=== PATIENT | male | born 1965 | race African-American/Black ===

== ENCOUNTER 2016-12-07 02:45 | Inpatient (IN) | payer MEDICARE, MEDICAID ==
[~2016-12-07] VITALS: Ht 185.4 cm; Wt 108.9 kg
[~2016-12-07 02:45] MED LIST: AMLO10TA80 PO; CINA30 PO; CLON0.1T PO; CLOP75TA33 PO; FURO40TA5 PO; HYDR-523 PO; INSU100I19 SQ; ISOSORBIDE DINITRATE; LOSA25TA12 PO; METO100T5 PO; MULT-1146 PO; NEPVIT PO; NITR0.4T49 SL; REN800 PO
[2016-12-07] MEDS ORDERED: SODIUM CHLORIDE 0.9% 500 ML IV ONE (03:45)
[2016-12-07 04:35] LABS: EOSINOPHILS % 1.8 % (0.0-5.0); HEMATOCRIT. 25.3 % (42.0-52.0); HEMOGLOBIN. 8.3 g/dL (14.0-18.0); LYMPHOCYTES % 11.8 % (20.0-50.0); MEAN CORPUSCULAR HEMOGLOBIN 30.6 pg (28.0-32.0); MEAN CORPUSCULAR VOLUME 93.5 fL (80.0-94.0); MEAN PLATELET VOLUME 9.4 fl (7.4-10.4); MONOCYTES % 7.5 % (2.0-8.0); NEUTROPHILS % 77.9 % (40.0-76.0); PLATELET 276 x1000/uL (130-400); RED CELL DISTRIBUTION WIDTH 15.5 % (11.6-14.6)
[2016-12-07] MEDS ORDERED: ONDANSETRON HCL 4MG/2ML VIAL IV ONE (04:45)
[2016-12-07 04:51] LABS: CARBON DIOXIDE 31 mEq/L (21-32); CHLORIDE 94 mEq/L (98-107); TROPONIN I 0.08 ng/mL (0.00-0.04)
[2016-12-07 08:55] VITALS: BP 127/68
[2016-12-07] MEDS ORDERED: DEXTROSE 50% WATER 50ML SYRINGE IV PRN (11:15)
[2016-12-07] MEDS: CLONIDINE 0.1MG TABLET PO SCH ×2 (11:30→22:00)
[2016-12-07] MEDS ORDERED: NITROGLYCERIN 0.4MG TABLET SL SL SCH (11:30)
[2016-12-07] MEDS: AMLODIPINE 10MG TABLET PO SCH (11:33)
[2016-12-07] MEDS ORDERED: HYDROCODONE/ACETAMINOPHEN 5/325MG TABLET PO PRN (11:36)
[2016-12-07] MEDS: METOPROLOL TARTRATE 100MG TABLET PO SCH (11:37)
[2016-12-07] MEDS: LOSARTAN POTASSIUM 25 MG TABLET PO SCH (11:37)
[2016-12-07 12:00] VITALS: BP 116/42
[2016-12-07 12:13] LABS: BASOPHILS % 1.1 % (0.0-2.0); EOSINOPHILS % 1.7 % (0.0-5.0); HEMATOCRIT. 26.9 % (42.0-52.0); HEMOGLOBIN. 8.7 g/dL (14.0-18.0); LYMPHOCYTES % 16.2 % (20.0-50.0); MONOCYTES % 7.3 % (2.0-8.0); NEUTROPHILS % 73.7 % (40.0-76.0); PLATELET 308 x1000/uL (130-400); RED BLOOD CELL COUNT 2.89 mill/uL (4.7-6.1); RED CELL DISTRIBUTION WIDTH 15.3 % (11.6-14.6)
[2016-12-07] MEDS: BLOOD SUGAR DIAGNOSTIC STRIP TEST SCH ×3 (12:20→21:00)
[2016-12-07 12:29] LABS: CARBON DIOXIDE 31 mEq/L (21-32); CHLORIDE 96 mEq/L (98-107)
[2016-12-07] MEDS: INSULIN LISPRO 100 UNITS/ML SUBCUT SCH ×3 (12:41→22:19)
[2016-12-07] MEDS ORDERED: MEDICATION NOT ON FORMULARY EA (Sevelamer Hcl (Renagel) 800 MG) PO SCH (13:00)
[2016-12-07] MEDS: FOLIC ACID/VITAMIN B COMP W-C TABLET PO SCH (13:04)
[2016-12-07] MEDS: CLOPIDOGREL 75MG TABLET PO SCH (13:04)
[2016-12-07] MEDS: DOCUSATE SODIUM 100MG CAPSULE PO SCH (13:04)
[2016-12-07] MEDS: FUROSEMIDE 40MG TABLET PO SCH (13:05)
[2016-12-07] MEDS: SEVELAMER CARBONATE 800 MG TABLET PO SCH ×2 (13:05→17:50)
[2016-12-07] MEDS: MULTIVITAMINS,THER W-MINERALS TABLET PO SCH (13:05)
[2016-12-07] MEDS: CINACALCET HCL 30MG TABLET PO SCH (13:05)
[2016-12-07] MEDS: ONDANSETRON HCL 4MG/2ML VIAL IV PRN (14:52)
[2016-12-07 16:00] VITALS: BP 108/45
[2016-12-07 17:44] LABS: BASOPHILS % 1.2 % (0.0-2.0); EOSINOPHILS % 1.7 % (0.0-5.0); HEMATOCRIT. 26.2 % (42.0-52.0); HEMOGLOBIN. 8.5 g/dL (14.0-18.0); LYMPHOCYTES % 15.5 % (20.0-50.0); MEAN CORPUSCULAR HEMOGLOBIN 30.4 pg (28.0-32.0); MEAN CORPUSCULAR VOLUME 93.3 fL (80.0-94.0); MEAN PLATELET VOLUME 9.4 fl (7.4-10.4); MONOCYTES % 7.7 % (2.0-8.0); NEUTROPHILS % 73.9 % (40.0-76.0); PLATELET 286 x1000/uL (130-400); RED BLOOD CELL COUNT 2.81 mill/uL (4.7-6.1); RED CELL DISTRIBUTION WIDTH 15.5 % (11.6-14.6)
[2016-12-07 17:58] LABS: CARBON DIOXIDE 30 mEq/L (21-32); CHLORIDE 96 mEq/L (98-107)
[2016-12-07] MEDS ORDERED: INSULIN DETEMIR 15 UNIT SQ SCH (18:00)
[2016-12-07] MEDS ORDERED: MORPHINE SULFATE 2 MG/ML CPJ (NOT FOR IM USE) IV PRN (19:15)
[2016-12-07 20:00] VITALS: BP 105/55
[2016-12-07] MEDS: INSULIN DETEMIR UD 100 UNITS/ML SYR SUBCUT SCH (22:19)
[2016-12-07] MEDS ORDERED: FINA5TAB11 PO (23:40)
[2016-12-07] MEDS ORDERED: TAMS0.4C31 PO (23:40)
[2016-12-08 00:53] VITALS: BP 100/53
[2016-12-08 04:00] VITALS: BP 106/51
[2016-12-08] MEDS: CLONIDINE 0.1MG TABLET PO SCH ×3 (06:00→22:00)
[2016-12-08] MEDS: BLOOD SUGAR DIAGNOSTIC STRIP TEST SCH ×4 (06:50→21:20)
[2016-12-08 07:03] LABS: BASOPHILS % 1.4 % (0.0-2.0); EOSINOPHILS % 3.1 % (0.0-5.0); HEMATOCRIT. 25.2 % (42.0-52.0); HEMOGLOBIN. 8.3 g/dL (14.0-18.0); LYMPHOCYTES % 17.7 % (20.0-50.0); MEAN CORPUSCULAR HEMOGLOBIN 30.7 pg (28.0-32.0); MEAN CORPUSCULAR VOLUME 93.3 fL (80.0-94.0); MEAN PLATELET VOLUME 9.1 fl (7.4-10.4); MONOCYTES % 9.5 % (2.0-8.0); NEUTROPHILS % 68.3 % (40.0-76.0); PLATELET 305 x1000/uL (130-400); RED CELL DISTRIBUTION WIDTH 15.6 % (11.6-14.6)
[2016-12-08] MEDS: INSULIN LISPRO 100 UNITS/ML SUBCUT SCH ×4 (07:50→21:00)
[2016-12-08 08:00] VITALS: BP 108/57
[2016-12-08] MEDS: DOCUSATE SODIUM 100MG CAPSULE PO SCH (08:49)
[2016-12-08] MEDS: SEVELAMER CARBONATE 800 MG TABLET PO SCH ×3 (08:49→18:02)
[2016-12-08] MEDS: FOLIC ACID/VITAMIN B COMP W-C TABLET PO SCH (08:50)
[2016-12-08] MEDS: FUROSEMIDE 40MG TABLET PO SCH (08:50)
[2016-12-08] MEDS: CINACALCET HCL 30MG TABLET PO SCH (08:50)
[2016-12-08] MEDS: MULTIVITAMINS,THER W-MINERALS TABLET PO SCH (08:50)
[2016-12-08] MEDS: CLOPIDOGREL 75MG TABLET PO SCH (08:50)
[2016-12-08] MEDS: METOPROLOL TARTRATE 100MG TABLET PO SCH (08:52)
[2016-12-08] MEDS: AMLODIPINE 10MG TABLET PO SCH (08:52)
[2016-12-08] MEDS: LOSARTAN POTASSIUM 25 MG TABLET PO SCH (08:52)
[2016-12-08] MEDS ORDERED: MEDICATION NOT ON FORMULARY EA (Multivitamin (Multi Vitamin Daily) 1 TAB) PO SCH (09:00)
[2016-12-08] MEDS: TAMSULOSIN HCL 0.4MG SR CAPSULE PO SCH (10:30)
[2016-12-08] MEDS ORDERED: IPRATROPIUM/ALBUTEROL 0.5-3(2.5)MG/3ML NEB HHN PRN (10:45)
[2016-12-08] MEDS: IPRATROPIUM/ALBUTEROL 0.5-3(2.5)MG/3ML NEB HHN SCH ×3 (11:53→20:25)
[2016-12-08 12:00] VITALS: BP 111/52
[2016-12-08 17:02] VITALS: BP 102/52
[2016-12-08] MEDS: LACTULOSE 20G/30ML UDC PO PRN (18:57)
[2016-12-08 20:48] VITALS: BP 110/48
[2016-12-08] MEDS ORDERED: EPOETIN ALFA 10000UNITS/ML VIAL SUBCUT SCH (21:00)
[2016-12-08] MEDS: METOPROLOL TARTRATE 50MG TABLET PO SCH (21:00)
[2016-12-08] MEDS: INSULIN DETEMIR UD 100 UNITS/ML SYR SUBCUT SCH (22:00)
[2016-12-09] MEDS: IPRATROPIUM/ALBUTEROL 0.5-3(2.5)MG/3ML NEB HHN SCH ×4 (00:20→15:46)
[2016-12-09 00:33] VITALS: BP 103/47
[2016-12-09 04:39] VITALS: BP 113/46
[2016-12-09] MEDS: CLONIDINE 0.1MG TABLET PO SCH (06:00)
[2016-12-09 06:26] LABS: BASOPHILS % 1.2 % (0.0-2.0); EOSINOPHILS % 2.5 % (0.0-5.0); HEMATOCRIT. 26.6 % (42.0-52.0); HEMOGLOBIN. 8.7 g/dL (14.0-18.0); LYMPHOCYTES % 18.4 % (20.0-50.0); MEAN CORPUSCULAR HEMOGLOBIN 30.7 pg (28.0-32.0); MEAN CORPUSCULAR VOLUME 93.9 fL (80.0-94.0); MEAN PLATELET VOLUME 8.6 fl (7.4-10.4); MONOCYTES % 8.8 % (2.0-8.0); NEUTROPHILS % 69.1 % (40.0-76.0); PLATELET 309 x1000/uL (130-400); RED BLOOD CELL COUNT 2.83 mill/uL (4.7-6.1); RED CELL DISTRIBUTION WIDTH 15.7 % (11.6-14.6)
[2016-12-09] MEDS: BLOOD SUGAR DIAGNOSTIC STRIP TEST SCH ×2 (06:53→12:06)
[2016-12-09] MEDS: INSULIN LISPRO 100 UNITS/ML SUBCUT SCH ×2 (07:50→12:50)
[2016-12-09] MEDS: SEVELAMER CARBONATE 800 MG TABLET PO SCH ×2 (07:50→12:50)
[2016-12-09] MEDS: DOCUSATE SODIUM 100MG CAPSULE PO SCH (07:59)
[2016-12-09] MEDS: LACTULOSE 20G/30ML UDC PO PRN (07:59)
[2016-12-09 08:00] VITALS: BP 140/41
[2016-12-09] MEDS: LOSARTAN POTASSIUM 25 MG TABLET PO SCH (08:18)
[2016-12-09] MEDS: FUROSEMIDE 40MG TABLET PO SCH (08:18)
[2016-12-09] MEDS: TAMSULOSIN HCL 0.4MG SR CAPSULE PO SCH (08:18)
[2016-12-09] MEDS: CLOPIDOGREL 75MG TABLET PO SCH (08:19)
[2016-12-09] MEDS: FOLIC ACID/VITAMIN B COMP W-C TABLET PO SCH (08:19)
[2016-12-09] MEDS: METOPROLOL TARTRATE 50MG TABLET PO SCH (08:19)
[2016-12-09] MEDS: CINACALCET HCL 30MG TABLET PO SCH (08:19)
[2016-12-09] MEDS: MULTIVITAMINS,THER W-MINERALS TABLET PO SCH (08:19)
[2016-12-09] MEDS: AMLODIPINE 10MG TABLET PO SCH (08:19)
[2016-12-09] MEDS ORDERED: BISACODYL 5MG TABLET PO PRN (09:15)
[2016-12-09] MEDS ORDERED: MAGNESIUM CITRATE 300ML SOLUTION PO SCH (09:15)
[2016-12-09] MEDS ORDERED: BISACODYL 5MG TABLET PO SCH (09:15)
[2016-12-09] MEDS: ONDANSETRON HCL 4MG/2ML VIAL IV PRN (10:36)
[2016-12-09] MEDS ORDERED: FINASTERIDE 5MG TABLET PO SCH (11:30)
[2016-12-09 12:12] VITALS: BP 118/32
[2016-12-09 15:45] VITALS: BP 102/50
[2016-12-09 16:04] VITALS: BP 102/50
== END 2016-12-09 16:15 | disposition home or self-care (01) | DRG 291 ==
LOC: ER 03:44 → 6WST 03:49 → EDBEDREQ 05:49 → ENRESERV 07:17
PROVIDERS: ADMIT Family Medicine; ATTEND Family Medicine
DX: I13.2 Hypertensive heart and chronic kidney disease with heart failure and with stage 5 chronic kidney disease, or end stage renal disease (principal); E43 Unspecified severe protein-calorie malnutrition; N18.6 End stage renal disease; I50.31 Acute diastolic (congestive) heart failure; N25.81 Secondary hyperparathyroidism of renal origin; E11.22 Type 2 diabetes mellitus with diabetic chronic kidney disease; E11.51 Type 2 diabetes mellitus with diabetic peripheral angiopathy without gangrene; D63.8 Anemia in other chronic diseases classified elsewhere; E11.319 Type 2 diabetes mellitus with unspecified diabetic retinopathy without macular edema; Z68.31 Body mass index [BMI] 31.0-31.9, adult; I25.2 Old myocardial infarction; Z79.02 Long term (current) use of antithrombotics/antiplatelets; Z86.73 Personal history of transient ischemic attack (TIA), and cerebral infarction without residual deficits; Z89.429 Acquired absence of other toe(s), unspecified side; Z99.2 Dependence on renal dialysis; Z89.511 Acquired absence of right leg below knee; Z79.899 Other long term (current) drug therapy; Z79.4 Long term (current) use of insulin
CPT/HCPCS: 36415; 71010; 80048; 80053; 82962; 83605; 84484; 85025; 87040; 93005; 94640; 94664; 96361; 96374; 97162; 99285; J0885; J1815; J2270; J2405; J7030; J7040; J7620

== ENCOUNTER 2016-12-10 11:49 | Inpatient (IN) | payer MEDICARE, MEDICAID ==
[~2016-12-10] VITALS: Ht 175.3 cm; Wt 119.7 kg
[~2016-12-10 11:49] MED LIST changes: +FINA5TAB11 PO; +TAMS0.4C31 PO
[2016-12-10 13:26] LABS: BASOPHILS % 1.8 % (0.0-2.0); EOSINOPHILS % 1.6 % (0.0-5.0); HEMOGLOBIN. 8.6 g/dL (14.0-18.0); LYMPHOCYTES % 13.1 % (20.0-50.0); MEAN CORPUSCULAR HEMOGLOBIN 30.8 pg (28.0-32.0); MEAN CORPUSCULAR VOLUME 93.2 fL (80.0-94.0); MEAN PLATELET VOLUME 8.6 fl (7.4-10.4); MONOCYTES % 7.5 % (2.0-8.0); PLATELET 325 x1000/uL (130-400); RED BLOOD CELL COUNT 2.79 mill/uL (4.7-6.1); RED CELL DISTRIBUTION WIDTH 16.1 % (11.6-14.6)
[2016-12-10 13:42] LABS: CARBON DIOXIDE 26 mEq/L (21-32); CHLORIDE 92 mEq/L (98-107)
[2016-12-10 17:18] LABS: TROPONIN I 0.04 ng/mL (0.00-0.04)
[2016-12-10 18:59] VITALS: BP 139/94
[2016-12-10 20:00] VITALS: BP_SYST 102; BP_SYST 131; BP_DIAS 49; BP_DIAS 65
[2016-12-10] MEDS ORDERED: CLONIDINE 0.1MG TABLET PO PRN (23:00)
[2016-12-10] MEDS ORDERED: IPRATROPIUM/ALBUTEROL 0.5-3(2.5)MG/3ML NEB INH PRN (23:00)
[2016-12-10] MEDS ORDERED: MAGNESIUM/ALUMINUM HYDROXIDE/SIMETHICONE 30ML UDC PO PRN (23:00)
[2016-12-10] MEDS ORDERED: HYDROCODONE/ACETAMINOPHEN 5/325MG TABLET PO PRN (23:00)
[2016-12-10] MEDS ORDERED: DEXTROSE 50% WATER 50ML SYRINGE IV PRN (23:15)
[2016-12-10] MEDS: ACETAMINOPHEN 325MG TABLET PO PRN (23:27)
[2016-12-10] MEDS: ONDANSETRON HCL 4MG/2ML VIAL IV PRN (23:27)
[2016-12-11] VITALS: BP 111/86
[2016-12-11] MEDS ORDERED: CLONIDINE 0.1MG TABLET PO SCH (02:15)
[2016-12-11] MEDS ORDERED: NITROGLYCERIN 0.4MG TABLET SL SL PRN (02:15)
[2016-12-11 04:00] VITALS: BP 101/50
[2016-12-11] MEDS: CLONIDINE 0.1MG TABLET PO SCH ×4 (06:00→22:00)
[2016-12-11 06:35] LABS: BASOPHILS % 1.5 % (0.0-2.0); EOSINOPHILS % 2.2 % (0.0-5.0); HEMATOCRIT. 26.5 % (42.0-52.0); HEMOGLOBIN. 8.7 g/dL (14.0-18.0); LYMPHOCYTES % 15.9 % (20.0-50.0); MEAN CORPUSCULAR HEMOGLOBIN 30.7 pg (28.0-32.0); MEAN CORPUSCULAR VOLUME 94.1 fL (80.0-94.0); MEAN PLATELET VOLUME 8.6 fl (7.4-10.4); MONOCYTES % 10.3 % (2.0-8.0); NEUTROPHILS % 70.1 % (40.0-76.0); PLATELET 371 x1000/uL (130-400); RED BLOOD CELL COUNT 2.82 mill/uL (4.7-6.1); RED CELL DISTRIBUTION WIDTH 16.6 % (11.6-14.6)
[2016-12-11] MEDS: BLOOD SUGAR DIAGNOSTIC STRIP TEST SCH ×4 (07:20→21:00)
[2016-12-11 07:47] LABS: CREATINE KINASE MB FRACTION 3.7 ng/mL (0.5-3.6); TROPONIN I 0.06 ng/mL (0.00-0.04)
[2016-12-11] MEDS: INSULIN LISPRO 100 UNITS/ML SUBCUT SCH ×4 (07:49→21:00)
[2016-12-11] MEDS: LOSARTAN POTASSIUM 25 MG TABLET PO SCH (08:41)
[2016-12-11] MEDS: TAMSULOSIN HCL 0.4MG SR CAPSULE PO SCH (08:41)
[2016-12-11] MEDS: AMLODIPINE 10MG TABLET PO SCH (08:50)
[2016-12-11] MEDS: FUROSEMIDE 40MG TABLET PO SCH (08:51)
[2016-12-11] MEDS: CLOPIDOGREL 75MG TABLET PO SCH (08:51)
[2016-12-11] MEDS: FOLIC ACID/VITAMIN B COMP W-C TABLET PO SCH (08:51)
[2016-12-11] MEDS: CINACALCET HCL 30MG TABLET PO SCH (08:52)
[2016-12-11] MEDS: MULTIVITAMINS,THER W-MINERALS TABLET PO SCH (08:52)
[2016-12-11] MEDS: FINASTERIDE 5MG TABLET PO SCH (08:52)
[2016-12-11] MEDS: SEVELAMER CARBONATE 800 MG TABLET PO SCH ×3 (08:52→18:00)
[2016-12-11] MEDS ORDERED: METOPROLOL TARTRATE 100MG TABLET PO SCH (09:00)
[2016-12-11] MEDS ORDERED: MEDICATION NOT ON FORMULARY EA (Multivitamin (Multi Vitamin Daily) 1 TAB) PO SCH (09:00)
[2016-12-11] MEDS ORDERED: MEDICATION NOT ON FORMULARY EA (Sevelamer Hcl (Renagel) 800 MG) PO SCH (09:00)
[2016-12-11] MEDS: DOCUSATE SODIUM 100MG CAPSULE PO PRN ×2 (10:33→21:56)
[2016-12-11] MEDS: DIPHENHYDRAMINE 50MG/ML VIAL IV PRN ×3 (10:34→23:48)
[2016-12-11] MEDS: ASPIRIN 81MG EC TABLET PO SCH (13:59)
[2016-12-11 15:53] LABS: CREATINE KINASE MB FRACTION 4.2 ng/mL (0.5-3.6); TROPONIN I 0.07 ng/mL (0.00-0.04)
[2016-12-11 16:25] VITALS: BP 99/32
[2016-12-11] MEDS ORDERED: INSULIN DETEMIR 15 UNIT SQ SCH (18:00)
[2016-12-11] MEDS ORDERED: INSULIN DETEMIR UD 100 UNITS/ML SYR SUBCUT SCH (18:15)
[2016-12-11] MEDS ORDERED: LACTULOSE 20G/30ML UDC PO PRN (18:45)
[2016-12-11 19:39] VITALS: BP 87/40
[2016-12-11 21:00] VITALS: BP 120/90
[2016-12-11] MEDS ORDERED: EPOETIN ALFA 10000UNITS/ML VIAL SUBCUT SCH (21:00)
[2016-12-11] MEDS: CARVEDILOL 12.5MG TABLET PO SCH (21:56)
[2016-12-12] VITALS (7 sets, daily range): BP systolic 84–126; BP diastolic 25–92
[2016-12-12] MEDS: DIPHENHYDRAMINE 50MG/ML VIAL IV PRN ×3 (04:10→20:47)
[2016-12-12] MEDS: CLONIDINE 0.1MG TABLET PO SCH ×3 (06:00→21:16)
[2016-12-12] MEDS: BLOOD SUGAR DIAGNOSTIC STRIP TEST SCH ×4 (06:33→21:15)
[2016-12-12 07:04] LABS: EOSINOPHILS % 1.5 % (0.0-5.0); HEMATOCRIT. 25.1 % (42.0-52.0); HEMOGLOBIN. 8.3 g/dL (14.0-18.0); MEAN CORPUSCULAR HEMOGLOBIN 31.2 pg (28.0-32.0); MEAN CORPUSCULAR VOLUME 93.9 fL (80.0-94.0); MEAN PLATELET VOLUME 8.8 fl (7.4-10.4); MONOCYTES % 7.9 % (2.0-8.0); NEUTROPHILS % 76.6 % (40.0-76.0); PLATELET 310 x1000/uL (130-400); RED BLOOD CELL COUNT 2.67 mill/uL (4.7-6.1); RED CELL DISTRIBUTION WIDTH 15.9 % (11.6-14.6)
[2016-12-12] MEDS: INSULIN LISPRO 100 UNITS/ML SUBCUT SCH ×4 (07:50→21:00)
[2016-12-12] MEDS: MULTIVITAMINS,THER W-MINERALS TABLET PO SCH (10:03)
[2016-12-12] MEDS: TAMSULOSIN HCL 0.4MG SR CAPSULE PO SCH (10:03)
[2016-12-12] MEDS: FINASTERIDE 5MG TABLET PO SCH (10:04)
[2016-12-12] MEDS: AMLODIPINE 10MG TABLET PO SCH (10:04)
[2016-12-12] MEDS: CLOPIDOGREL 75MG TABLET PO SCH (10:05)
[2016-12-12] MEDS: FUROSEMIDE 40MG TABLET PO SCH (10:05)
[2016-12-12] MEDS: ASPIRIN 81MG EC TABLET PO SCH (10:05)
[2016-12-12] MEDS: SEVELAMER CARBONATE 800 MG TABLET PO SCH ×3 (10:05→17:53)
[2016-12-12] MEDS: CARVEDILOL 12.5MG TABLET PO SCH ×2 (10:05→10:07)
[2016-12-12] MEDS: FOLIC ACID/VITAMIN B COMP W-C TABLET PO SCH (10:05)
[2016-12-12] MEDS: CINACALCET HCL 30MG TABLET PO SCH (10:06)
[2016-12-12] MEDS: LOSARTAN POTASSIUM 25 MG TABLET PO SCH (10:06)
[2016-12-12] MEDS: ONDANSETRON HCL 4MG/2ML VIAL IV PRN ×2 (14:29→21:16)
[2016-12-12] MEDS: ACETAMINOPHEN 325MG TABLET PO PRN (19:42)
[2016-12-12] MEDS ORDERED: INSULIN DETEMIR UD 100 UNITS/ML SYR SUBCUT SCH (22:00)
[2016-12-13] VITALS: BP 104/37
[2016-12-13] MEDS: DIPHENHYDRAMINE 50MG/ML VIAL IV PRN (03:08)
[2016-12-13 04:00] VITALS: BP 99/38
[2016-12-13 05:46] LABS: BASOPHILS % 1.2 % (0.0-2.0); EOSINOPHILS % 3.3 % (0.0-5.0); HEMATOCRIT. 25.4 % (42.0-52.0); HEMOGLOBIN. 8.3 g/dL (14.0-18.0); LYMPHOCYTES % 14.6 % (20.0-50.0); MEAN CORPUSCULAR HEMOGLOBIN 31.2 pg (28.0-32.0); MEAN PLATELET VOLUME 8.3 fl (7.4-10.4); MONOCYTES % 10.6 % (2.0-8.0); NEUTROPHILS % 70.3 % (40.0-76.0); PLATELET 276 x1000/uL (130-400); RED BLOOD CELL COUNT 2.67 mill/uL (4.7-6.1); RED CELL DISTRIBUTION WIDTH 16.5 % (11.6-14.6)
[2016-12-13] MEDS: CLONIDINE 0.1MG TABLET PO SCH ×2 (06:00→13:52)
[2016-12-13] MEDS: BLOOD SUGAR DIAGNOSTIC STRIP TEST SCH ×2 (06:47→12:20)
[2016-12-13] MEDS: INSULIN LISPRO 100 UNITS/ML SUBCUT SCH ×2 (07:50→12:50)
[2016-12-13] MEDS: LOSARTAN POTASSIUM 25 MG TABLET PO SCH (09:00)
[2016-12-13] MEDS: CARVEDILOL 12.5MG TABLET PO SCH (09:00)
[2016-12-13] MEDS: AMLODIPINE 10MG TABLET PO SCH (09:00)
[2016-12-13] MEDS: SEVELAMER CARBONATE 800 MG TABLET PO SCH ×2 (09:34→13:50)
[2016-12-13] MEDS: CINACALCET HCL 30MG TABLET PO SCH (09:34)
[2016-12-13] MEDS: FINASTERIDE 5MG TABLET PO SCH (09:34)
[2016-12-13] MEDS: FOLIC ACID/VITAMIN B COMP W-C TABLET PO SCH (09:34)
[2016-12-13] MEDS: ASPIRIN 81MG EC TABLET PO SCH (09:34)
[2016-12-13] MEDS: MULTIVITAMINS,THER W-MINERALS TABLET PO SCH (09:34)
[2016-12-13] MEDS: CLOPIDOGREL 75MG TABLET PO SCH (09:35)
[2016-12-13] MEDS: TAMSULOSIN HCL 0.4MG SR CAPSULE PO SCH (09:35)
[2016-12-13] MEDS: FUROSEMIDE 40MG TABLET PO SCH (09:35)
[2016-12-13 13:07] VITALS: BP 120/60
[2016-12-13 13:23] VITALS: BP 108/63
[2016-12-13] MEDS: ACETAMINOPHEN 325MG TABLET PO PRN (14:18)
[2016-12-13 15:44] VITALS: BP 120/67
== END 2016-12-13 16:30 | disposition home or self-care (01) | DRG 73 ==
LOC: ER 11:49 → 6WST 17:06 → ENRESERV 17:20 → 6WST 20:06
PROVIDERS: ADMIT Internal Medicine; ATTEND Internal Medicine
PROC: 5A1D60Z (ICD-10-PCS; principal; 2016-12-11)
DX: G90.8 Other disorders of autonomic nervous system (principal); N18.6 End stage renal disease; I13.2 Hypertensive heart and chronic kidney disease with heart failure and with stage 5 chronic kidney disease, or end stage renal disease; I42.9 Cardiomyopathy, unspecified; E11.22 Type 2 diabetes mellitus with diabetic chronic kidney disease; E11.51 Type 2 diabetes mellitus with diabetic peripheral angiopathy without gangrene; I69.354 Hemiplegia and hemiparesis following cerebral infarction affecting left non-dominant side; G45.9 Transient cerebral ischemic attack, unspecified; I44.7 Left bundle-branch block, unspecified; D64.9 Anemia, unspecified; I25.10 Atherosclerotic heart disease of native coronary artery without angina pectoris; I50.9 Heart failure, unspecified; N40.0 Benign prostatic hyperplasia without lower urinary tract symptoms; Z79.4 Long term (current) use of insulin; Z82.49 Family history of ischemic heart disease and other diseases of the circulatory system; I25.2 Old myocardial infarction; Z89.511 Acquired absence of right leg below knee; Z98.61 Coronary angioplasty status; Z99.2 Dependence on renal dialysis
CPT/HCPCS: 36415; 71010; 80048; 80053; 80061; 82550; 82553; 82962; 83735; 83880; 84443; 84484; 85025; 87040; 93005; 93306; 93970; 94664; 99285; A4565; J0885; J1200; J1815; J2405; J7030; J7620